=== PATIENT | female | born 1970 | race Caucasian/White ===

== ENCOUNTER 2017-02-28 14:44 | Emergency (ER) | payer SELFPAY ==
[~2017-02-28] VITALS: Ht 162.6 cm; Wt 114.0 kg
[~2017-02-28 14:44] MED LIST: CEFD300C37 PO; CLIN-60 PO; CYCL5TAB PO; LINE600T37 PO; TRIA50CA PO
[2017-02-28 14:45] VITALS: BP 138/92
== END 2017-02-28 16:14 | disposition home or self-care (01) ==
LOC: ED 16:00
DX: M54.16 Radiculopathy, lumbar region (principal); E11.9 Type 2 diabetes mellitus without complications; M35.9 Systemic involvement of connective tissue, unspecified
CPT/HCPCS: 72110; 99284

== ENCOUNTER → 2018-07-13 | Outpatient (CLI) | payer OTHER ==
[~2018-07-13] MED LIST changes: -CLIN-60 PO; +CLIN150C14 PO
== END | disposition home or self-care (01) ==
LOC: CFH 11:21
PROVIDERS: ATTEND Nurse Practitioner Family
DX: E04.2 Nontoxic multinodular goiter (principal)
CPT/HCPCS: 76536

== ENCOUNTER → 2018-07-21 | Outpatient (CLI) | payer OTHER ==
[~2018-07-21] MED LIST changes: +LIDOCAINE-MPF 1%, 5ML ONE
== END | disposition home or self-care (01) ==
LOC: RAD 13:55
PROVIDERS: ATTEND Nurse Practitioner Family
DX: E04.1 Nontoxic single thyroid nodule (principal)
CPT/HCPCS: 10022; 76942; 88172; 88173

== ENCOUNTER 2019-05-20 06:41 | Inpatient (IN) | payer OTHER ==
[~2019-05-20] VITALS: Ht 160 cm; Wt 141.5 kg
[2019-05-22 07:26] VITALS: BP 112/72
== END 2019-05-22 13:54 | disposition home or self-care (01) | DRG 872 ==
LOC: ED 08:48 → SUATTDRO 08:49 → EDIP 09:00 → 3NE 10:17
PROVIDERS: ADMIT Internal Medicine; ATTEND Internal Medicine
DX: A41.9 Sepsis, unspecified organism (principal); Z68.43 Body mass index [BMI] 50.0-59.9, adult; L03.115 Cellulitis of right lower limb; E11.40 Type 2 diabetes mellitus with diabetic neuropathy, unspecified; E11.65 Type 2 diabetes mellitus with hyperglycemia; E66.01 Morbid (severe) obesity due to excess calories; Z88.8 Allergy status to other drugs, medicaments and biological substances; E88.09 Other disorders of plasma-protein metabolism, not elsewhere classified; G43.909 Migraine, unspecified, not intractable, without status migrainosus; I10 Essential (primary) hypertension; J45.909 Unspecified asthma, uncomplicated; Z82.49 Family history of ischemic heart disease and other diseases of the circulatory system; Z80.1 Family history of malignant neoplasm of trachea, bronchus and lung; Z91.19 Patient's noncompliance with other medical treatment and regimen; Z71.6 Tobacco abuse counseling; Z79.4 Long term (current) use of insulin; Z79.899 Other long term (current) drug therapy
CPT/HCPCS: 36415; 80048; 80053; 82040; 82962; 83036; 85025; 87040; 96365; G0378; J0696; J0712; J1650; Q0162; J1815; J7030